=== PATIENT | male | born 2000 | race Caucasian/White ===

== ENCOUNTER → 2023-10-10 16:57 | Outpatient (REF) | payer OTHER, SELFPAY | LOC: HWRAD 16:57 | PROVIDERS: ATTENDING PHYSICIAN Physician Assistant | DX: S89.92XA Unspecified injury of left lower leg, initial encounter (principal) | CPT/HCPCS: 73564 ==

== ENCOUNTER → 2023-12-07 07:15 | Outpatient (REF) | payer OTHER, SELFPAY | LOC: MRI 07:15 | PROVIDERS: ATTENDING PHYSICIAN Physician Assistant | DX: S89.92XA Unspecified injury of left lower leg, initial encounter (principal) | CPT/HCPCS: 73721 ==